=== PATIENT | female | born 1980 | race Caucasian/White ===

== ENCOUNTER → 2017-10-05 | Outpatient (CLI) | payer MEDICARE ==
[~2017-10-05] MED LIST: ALPR.25; CAMRESE LO TAB1 EACH PO; DAPS100 PO; DIPH12.5EL PO; ETHO250 PO; GABA300; HYDACE5325; HYDHCL25 PO; LAMO100; LAMO100 PO; LAMOTRIGINE50 MG PO; MAGOXI400 PO; MONT10T PO; PROM25 PO; Percocet 5-3251 EACH PO; Prednisone10 MG PO; RANI150 PO; TOPI100; TOPI100 PO; Xyzal5 MG
== END | disposition home or self-care (01) ==
LOC: LAB EV 18:08
DX: N39.0 Urinary tract infection, site not specified (principal)
CPT/HCPCS: 87077; 87086; 87186

== ENCOUNTER 2020-02-22 00:20 | Day surgery (SDC) | payer MEDICARE ==
[2020-02-22] MEDS ORDERED: Xolair150 MG SC (09:37)
== END 2020-02-22 09:31 | disposition home or self-care (01) ==
LOC: ATC 00:20
DX: L50.1 Idiopathic urticaria (principal); F32.9 Major depressive disorder, single episode, unspecified; F41.9 Anxiety disorder, unspecified; Z79.899 Other long term (current) drug therapy; Z87.891 Personal history of nicotine dependence
CPT/HCPCS: 96372; J2357

== ENCOUNTER 2020-03-21 01:47 | Day surgery (SDC) | payer MEDICARE ==
[~2020-03-21 01:47] MED LIST changes: +Xolair150 MG SC
== END 2020-03-21 08:58 | disposition home or self-care (01) ==
LOC: ATC 01:47
DX: L50.1 Idiopathic urticaria (principal); F32.9 Major depressive disorder, single episode, unspecified; F41.9 Anxiety disorder, unspecified; G40.909 Epilepsy, unspecified, not intractable, without status epilepticus; Z79.899 Other long term (current) drug therapy; Z87.891 Personal history of nicotine dependence; Z88.5 Allergy status to narcotic agent; Z88.8 Allergy status to other drugs, medicaments and biological substances; Z91.041 Radiographic dye allergy status
CPT/HCPCS: 96372; J2357

== ENCOUNTER 2020-05-19 00:16 | Day surgery (SDC) | payer MEDICARE | END 2020-05-19 16:57 | disposition home or self-care (01) | LOC: ATC 00:16 | DX: L50.1 Idiopathic urticaria (principal) | CPT/HCPCS: 96372; J2357 ==

== ENCOUNTER 2020-06-25 00:29 | Day surgery (SDC) | payer BC, MEDICARE | END 2020-06-25 16:40 | disposition home or self-care (01) | LOC: ATC 00:29 | DX: L50.1 Idiopathic urticaria (principal) | CPT/HCPCS: 96372; J2357 ==

== ENCOUNTER 2020-07-23 09:12 | Day surgery (SDC) | payer BC, MEDICARE | END 2020-07-23 09:54 | disposition home or self-care (01) | LOC: ATC 09:12 | DX: L50.1 Idiopathic urticaria (principal); F32.9 Major depressive disorder, single episode, unspecified; F41.9 Anxiety disorder, unspecified; Z79.899 Other long term (current) drug therapy; Z87.891 Personal history of nicotine dependence; Z88.5 Allergy status to narcotic agent; Z88.8 Allergy status to other drugs, medicaments and biological substances; Z91.041 Radiographic dye allergy status | CPT/HCPCS: 96372; J2357 ==

== ENCOUNTER 2020-08-26 00:22 | Day surgery (SDC) | payer BC, MEDICARE | END 2020-08-26 09:39 | disposition home or self-care (01) | LOC: ATC 00:22 | DX: L50.1 Idiopathic urticaria (principal); F32.9 Major depressive disorder, single episode, unspecified; F41.9 Anxiety disorder, unspecified; Z87.891 Personal history of nicotine dependence; Z79.899 Other long term (current) drug therapy; Z88.5 Allergy status to narcotic agent; Z91.041 Radiographic dye allergy status; Z91.040 Latex allergy status; Z91.048 Other nonmedicinal substance allergy status; Z91.018 Allergy to other foods | CPT/HCPCS: 96372; J2357 ==

== ENCOUNTER 2020-09-23 00:26 | Day surgery (SDC) | payer BC, MEDICARE | END 2020-09-23 13:50 | disposition home or self-care (01) | LOC: ATC 00:26 | DX: L50.1 Idiopathic urticaria (principal); F32.9 Major depressive disorder, single episode, unspecified; F41.9 Anxiety disorder, unspecified; Z88.5 Allergy status to narcotic agent; Z88.8 Allergy status to other drugs, medicaments and biological substances; Z91.041 Radiographic dye allergy status; Z79.899 Other long term (current) drug therapy; Z91.040 Latex allergy status; Z91.048 Other nonmedicinal substance allergy status; Z87.891 Personal history of nicotine dependence; Z91.018 Allergy to other foods | CPT/HCPCS: J2357 ==

== ENCOUNTER 2020-10-21 00:07 | Day surgery (SDC) | payer BC, MEDICARE ==
[2021-04-07] MEDS ORDERED: Lamictal150 MG PO (12:55)
[2021-04-07] MEDS ORDERED: [UNRECOGNIZED DRUG - OTHER] PO (12:56)
[2021-04-07] MEDS ORDERED: VENLAFAXINE HC225 MG PO (12:57)
[2021-04-07] MEDS ORDERED: CENTRUM SILVER1 EAC2 PO (12:57)
[2021-04-07] MEDS ORDERED: PRAMIPEXOLE0.125 M1 PO (12:57)
[2021-04-07] MEDS ORDERED: PRED5 PO (12:58)
[2021-04-07] MEDS ORDERED: Vitamin D2000 UNIT PO (12:58)
[2021-04-07] MEDS ORDERED: ALPR.5 PO (12:59)
[2021-04-07] MEDS ORDERED: CYCL10 PO (12:59)
== END 2020-10-21 14:09 | disposition home or self-care (01) ==
LOC: ATC 00:07
DX: L50.1 Idiopathic urticaria (principal); F32.9 Major depressive disorder, single episode, unspecified; Z87.891 Personal history of nicotine dependence; Z88.8 Allergy status to other drugs, medicaments and biological substances
CPT/HCPCS: 96372; J2357

== ENCOUNTER 2020-11-18 00:44 | Day surgery (SDC) | payer BC, MEDICARE ==
[2021-04-07] MEDS ORDERED: Lamictal150 MG PO (12:55)
[2021-04-07] MEDS ORDERED: [UNRECOGNIZED DRUG - OTHER] PO (12:56)
[2021-04-07] MEDS ORDERED: VENLAFAXINE HC225 MG PO (12:57)
[2021-04-07] MEDS ORDERED: PRAMIPEXOLE0.125 M1 PO (12:57)
[2021-04-07] MEDS ORDERED: CENTRUM SILVER1 EAC2 PO (12:57)
[2021-04-07] MEDS ORDERED: PRED5 PO (12:58)
[2021-04-07] MEDS ORDERED: Vitamin D2000 UNIT PO (12:58)
[2021-04-07] MEDS ORDERED: ALPR.5 PO (12:59)
[2021-04-07] MEDS ORDERED: CYCL10 PO (12:59)
== END 2020-11-18 16:45 | disposition home or self-care (01) ==
LOC: ATC 00:44
DX: L50.1 Idiopathic urticaria (principal); Z87.891 Personal history of nicotine dependence; Z79.899 Other long term (current) drug therapy
CPT/HCPCS: 96372; J2357

== ENCOUNTER 2020-12-16 00:16 | Day surgery (SDC) | payer BC ==
[2021-04-07] MEDS ORDERED: Lamictal150 MG PO (12:55)
[2021-04-07] MEDS ORDERED: [UNRECOGNIZED DRUG - OTHER] PO (12:56)
[2021-04-07] MEDS ORDERED: CENTRUM SILVER1 EAC2 PO (12:57)
[2021-04-07] MEDS ORDERED: VENLAFAXINE HC225 MG PO (12:57)
[2021-04-07] MEDS ORDERED: PRAMIPEXOLE0.125 M1 PO (12:57)
[2021-04-07] MEDS ORDERED: PRED5 PO (12:58)
[2021-04-07] MEDS ORDERED: Vitamin D2000 UNIT PO (12:58)
[2021-04-07] MEDS ORDERED: CYCL10 PO (12:59)
[2021-04-07] MEDS ORDERED: ALPR.5 PO (12:59)
== END 2020-12-16 16:25 | disposition home or self-care (01) ==
LOC: ATC 00:16
DX: L50.1 Idiopathic urticaria (principal); Z88.5 Allergy status to narcotic agent; Z88.8 Allergy status to other drugs, medicaments and biological substances; Z79.899 Other long term (current) drug therapy
CPT/HCPCS: 96372; J2357

== ENCOUNTER → 2021-01-06 | Outpatient (CLI) | payer BC ==
[2021-01-08 16:08] LABS: HPV 16 Negative (Negative); HPV 18 Negative (Negative); HPV OTHER HR TYPES Negative (Negative)
== END ==
LOC: LAB SHORT 17:25
PROVIDERS: Obstetrics & Gynecology
DX: Z12.4 Encounter for screening for malignant neoplasm of cervix (principal); Z88.5 Allergy status to narcotic agent; Z88.8 Allergy status to other drugs, medicaments and biological substances; Z91.040 Latex allergy status; Z91.048 Other nonmedicinal substance allergy status
CPT/HCPCS: 87624; G0123

== ENCOUNTER 2021-01-14 16:00 | Day surgery (SDC) | payer BC | END 2021-01-14 16:45 | disposition home or self-care (01) | LOC: ATC 16:00 | DX: L50.1 Idiopathic urticaria (principal); Z79.899 Other long term (current) drug therapy | CPT/HCPCS: 96372; J2357 ==

== ENCOUNTER 2021-02-25 02:40 | Day surgery (SDC) | payer BC ==
[2021-04-07] MEDS ORDERED: Lamictal150 MG PO (12:55)
[2021-04-07] MEDS ORDERED: [UNRECOGNIZED DRUG - OTHER] PO (12:56)
[2021-04-07] MEDS ORDERED: VENLAFAXINE HC225 MG PO (12:57)
[2021-04-07] MEDS ORDERED: CENTRUM SILVER1 EAC2 PO (12:57)
[2021-04-07] MEDS ORDERED: PRAMIPEXOLE0.125 M1 PO (12:57)
[2021-04-07] MEDS ORDERED: Vitamin D2000 UNIT PO (12:58)
[2021-04-07] MEDS ORDERED: PRED5 PO (12:58)
[2021-04-07] MEDS ORDERED: ALPR.5 PO (12:59)
[2021-04-07] MEDS ORDERED: CYCL10 PO (12:59)
== END 2021-02-25 10:21 | disposition home or self-care (01) ==
LOC: ATC 02:40
DX: L50.1 Idiopathic urticaria (principal)
CPT/HCPCS: 96372; J2357

== ENCOUNTER 2021-03-24 04:31 | Day surgery (SDC) | payer BC ==
[2021-04-07] MEDS ORDERED: Lamictal150 MG PO (12:55)
[2021-04-07] MEDS ORDERED: [UNRECOGNIZED DRUG - OTHER] PO (12:56)
[2021-04-07] MEDS ORDERED: PRAMIPEXOLE0.125 M1 PO (12:57)
[2021-04-07] MEDS ORDERED: VENLAFAXINE HC225 MG PO (12:57)
[2021-04-07] MEDS ORDERED: CENTRUM SILVER1 EAC2 PO (12:57)
[2021-04-07] MEDS ORDERED: PRED5 PO (12:58)
[2021-04-07] MEDS ORDERED: Vitamin D2000 UNIT PO (12:58)
[2021-04-07] MEDS ORDERED: CYCL10 PO (12:59)
[2021-04-07] MEDS ORDERED: ALPR.5 PO (12:59)
== END 2021-03-24 16:36 | disposition home or self-care (01) ==
LOC: ATC 04:31
DX: L50.1 Idiopathic urticaria (principal)
CPT/HCPCS: 96372; J2357

== ENCOUNTER 2021-04-08 07:08 | Day surgery (SDC) | payer BC ==
[~2021-04-08] VITALS: Ht 165.1 cm; Wt 119.2 kg
[~2021-04-08 07:08] MED LIST changes: +ALPR.5 PO; +CENTRUM SILVER1 EAC2 PO; +CYCL10 PO; +Lamictal150 MG PO; +PRAMIPEXOLE0.125 M1 PO; +PRED5 PO; +VENLAFAXINE HC225 MG PO; +Vitamin D2000 UNIT PO; +[UNRECOGNIZED DRUG - OTHER] PO
--- NOTE | 2021-04-08 07:44 | NUR ---
Ambulatory in Day Surgery History, Chart, Medications and Allergies reviewed before start of procedure.Patient confirms NPO status and agrees with scheduled surgery. Lungs clear T/O to Auscultation. Patient States Post-Procedure ride home has been arranged WITH FRIEND
--- NOTE | 2021-04-08 08:26 | NUR ---
04/08/21 0826 Shane Blanchard MONITOR INTACT WITH CONTINUOUS PULSE OXIMETRY AND INTERMITTENT BP. O2 VIA N/C INTACT THROUGHOUT SEDATION/PROCEDURE. History, Chart, Medications and Allergies reviewed before start of procedure. HISTORY,CHART, MEDICATIONS AND ALLERGIES REVIEWED BEFORE START OF PROCEDURE. PATIENT CONFIRMS NPO STATUS AND AGREES WITH SCHEDULED PROCEDURE. 3-LEAD EKG REVIEWED WITH PHYSICIAN PRIOR TO START OF PROCEDURE. MONITOR INTACT WITH CONTINUOUS PULSE OXIMETRY AND INTERMITTENT BP. SUPPLEMENTAL O2 TO BE TITRATED THROUGHOUT PROCEDURE TO MAINTAIN O2 SATURATION ABOVE 90%. PATIENT DETERMINED TO BE ASA APPROPRIATE FOR MODERATE SEDATION PRIOR TO START OF PROCEDURE BY
--- NOTE | 2021-04-08 09:15 | NUR ---
Patient up to Ambulate independently. Gait steady. Discharge instructions reviewed with patient. Patient verbalizes understanding. Copy given to patient to take home. Discharged via wheelchair to private car for ride home.
== END 2021-04-08 23:07 | disposition home or self-care (01) ==
LOC: ORSCMMR 07:08 → ORD 08:00 → ORSCMMR 23:07
PROVIDERS: Internal Medicine Gastroenterology
PROC: 0DB78ZX Excision of Stomach, Pylorus, Via Natural or Artificial Opening Endoscopic, Diagnostic (ICD-10-PCS; principal; 2021-04-08 08:00)
PROC: 0DB98ZX Excision of Duodenum, Via Natural or Artificial Opening Endoscopic, Diagnostic (ICD-10-PCS; principal; 2021-04-08 08:00)
PROC: 0DB58ZX Excision of Esophagus, Via Natural or Artificial Opening Endoscopic, Diagnostic (ICD-10-PCS; principal; 2021-04-08 08:00)
DX: K21.9 Gastro-esophageal reflux disease without esophagitis (principal); K29.80 Duodenitis without bleeding; K29.70 Gastritis, unspecified, without bleeding; E66.01 Morbid (severe) obesity due to excess calories; Z68.41 Body mass index [BMI] 40.0-44.9, adult; Z01.818 Encounter for other preprocedural examination; I10 Essential (primary) hypertension; G40.909 Epilepsy, unspecified, not intractable, without status epilepticus; Z79.899 Other long term (current) drug therapy
CPT/HCPCS: 88305; 88342; A9270; J2250; J3010; J7120

== ENCOUNTER 2021-04-21 03:53 | Day surgery (SDC) | payer BC | END 2021-04-21 16:36 | disposition home or self-care (01) | LOC: ATC 03:53 | DX: L50.1 Idiopathic urticaria (principal) | CPT/HCPCS: 96372; J2357 ==

== ENCOUNTER 2021-04-24 22:52 | Emergency (ER) | payer BC | END 2021-04-24 23:25 | disposition left against medical advice (07) | LOC: ER 22:52 | DX: Z53.21 Procedure and treatment not carried out due to patient leaving prior to being seen by health care provider (principal) ==

== ENCOUNTER 2021-05-19 09:25 | Day surgery (SDC) | payer BC | END 2021-05-19 10:58 | disposition home or self-care (01) | LOC: ATC 09:25 | DX: L50.1 Idiopathic urticaria (principal) | CPT/HCPCS: 96372; J2357 ==

== ENCOUNTER 2021-06-16 16:24 | Day surgery (SDC) | payer BC | END 2021-06-16 22:42 | disposition home or self-care (01) | LOC: ATC 16:24 | DX: L50.1 Idiopathic urticaria (principal) | CPT/HCPCS: 96372; J2357 ==

== ENCOUNTER → 2021-08-24 | Outpatient (CLI) | payer BC | END | disposition home or self-care (01) | LOC: LAB SHORT 11:19 → LAB 11:19 | DX: L82.1 Other seborrheic keratosis (principal) ==

== ENCOUNTER 2021-09-10 00:12 | Day surgery (SDC) | payer BC | END 2021-09-10 10:00 | disposition home or self-care (01) | LOC: ATC 00:12 | DX: L50.1 Idiopathic urticaria (principal) | CPT/HCPCS: 96372; J2357 ==

== ENCOUNTER 2021-09-16 13:00 | Emergency (ER) | payer BC ==
[~2021-09-16] VITALS: Ht 165.1 cm; Wt 115.2 kg
[2021-09-16] MEDS ORDERED: AMOCLA875 PO (15:18)
[2021-09-16 15:35] LABS: Calcium, Ionized (POC) 1.21 mmol/L (1.10-1.46); Chloride (POC) 104 mmol/L (98-108); Creatinine (POC) 0.8 mg/dL (0.6-1.0); Glucose (ISTAT POC) 94 mg/dL (70-99); Hemoglobin (POC) 14.6 g/dL (12.0-16.0); Potassium (POC) 3.7 mmol/L (3.5-5.5); Sodium (POC) 139 mmol/L (135-148); Total CO2 (POC) 26 mmol/L (21-32)
== END 2021-09-16 15:37 | disposition home or self-care (01) ==
LOC: ER 13:00
PROVIDERS: Physician Assistant
DX: J01.90 Acute sinusitis, unspecified (principal); R56.9 Unspecified convulsions; W18.30XA Fall on same level, unspecified, initial encounter; Z91.048 Other nonmedicinal substance allergy status; Z91.040 Latex allergy status; Z88.5 Allergy status to narcotic agent; Z79.899 Other long term (current) drug therapy; Z79.52 Long term (current) use of systemic steroids; G40.909 Epilepsy, unspecified, not intractable, without status epilepticus; Z87.891 Personal history of nicotine dependence
CPT/HCPCS: 70450; 80047; 85014; 99284-25; A9270

== ENCOUNTER 2021-10-29 03:21 | Day surgery (SDC) | payer BC ==
[~2021-10-29 03:21] MED LIST changes: +AMOCLA875 PO
== END 2021-10-29 15:52 | disposition home or self-care (01) ==
LOC: ATC 03:21
DX: L50.1 Idiopathic urticaria (principal)
CPT/HCPCS: 96372; J2357

== ENCOUNTER 2021-12-17 03:27 | Day surgery (SDC) | payer BC | END 2021-12-17 14:10 | disposition home or self-care (01) | LOC: ATC 03:27 | DX: L50.1 Idiopathic urticaria (principal) | CPT/HCPCS: 96372; J2357 ==

== ENCOUNTER 2022-02-16 04:31 | Day surgery (SDC) | payer BC | END 2022-02-16 17:00 | disposition home or self-care (01) | LOC: ATC 04:31 | DX: L50.1 Idiopathic urticaria (principal) | CPT/HCPCS: 96372; J2357 ==

== ENCOUNTER 2022-03-16 04:48 | Day surgery (SDC) | payer BC | END 2022-03-16 16:37 | disposition home or self-care (01) | LOC: ATC 04:48 | DX: L50.1 Idiopathic urticaria (principal) | CPT/HCPCS: J2357 ==

== ENCOUNTER 2022-04-13 02:40 | Day surgery (SDC) | payer BC | END 2022-04-13 16:36 | disposition home or self-care (01) | LOC: ATC 02:40 | DX: L50.1 Idiopathic urticaria (principal) | CPT/HCPCS: 96372; J2357 ==

== ENCOUNTER 2022-05-12 01:36 | Day surgery (SDC) | payer BC | END 2022-05-12 16:24 | disposition home or self-care (01) | LOC: ATC 01:36 | DX: L50.1 Idiopathic urticaria (principal) | CPT/HCPCS: 96372; J2357 ==

== ENCOUNTER 2022-07-07 02:17 | Day surgery (SDC) | payer BC ==
[~2022-07-07 02:17] MED LIST changes: +METO50ER PO; +MIRAPEX0.25 M1 PO
== END 2022-07-07 16:24 | disposition home or self-care (01) ==
LOC: ATC 02:17
DX: L50.1 Idiopathic urticaria (principal); Z86.16 Personal history of COVID-19
CPT/HCPCS: J2357

== ENCOUNTER 2022-09-23 03:59 | Day surgery (SDC) | payer BC | END 2022-09-23 09:41 | disposition home or self-care (01) | LOC: ATC 03:59 | DX: L50.1 Idiopathic urticaria (principal) | CPT/HCPCS: 96372; J2357 ==

== ENCOUNTER 2022-11-18 01:16 | Day surgery (SDC) | payer BC | END 2022-11-18 16:35 | disposition home or self-care (01) | LOC: ATC 01:16 | DX: L50.1 Idiopathic urticaria (principal) | CPT/HCPCS: 96372; J2357 ==

== ENCOUNTER 2023-01-12 02:40 | Day surgery (SDC) | payer BC ==
[2023-01-12 15:00] VITALS: BP 122/90
== END 2023-01-12 15:25 | disposition home or self-care (01) ==
LOC: ATC 02:40
DX: L50.1 Idiopathic urticaria (principal)
CPT/HCPCS: 96372; J2357

== ENCOUNTER 2023-02-09 00:16 | Day surgery (SDC) | payer BC | END 2023-02-09 15:17 | disposition home or self-care (01) | LOC: ATC 00:16 | DX: L50.1 Idiopathic urticaria (principal) | CPT/HCPCS: J2357 ==

== ENCOUNTER 2023-03-09 02:49 | Day surgery (SDC) | payer BC ==
[2023-03-09 13:47] VITALS: BP 132/85
== END 2023-03-09 13:47 | disposition home or self-care (01) ==
LOC: ATC 02:49
DX: L50.1 Idiopathic urticaria (principal); Z88.6 Allergy status to analgesic agent; Z91.041 Radiographic dye allergy status
CPT/HCPCS: J2357

== ENCOUNTER 2023-05-09 00:15 | Day surgery (SDC) | payer BC ==
[2023-05-09 14:06] VITALS: BP 140/82
== END 2023-05-09 14:10 | disposition home or self-care (01) ==
LOC: ATC 00:15
DX: L50.8 Other urticaria (principal); Z98.84 Bariatric surgery status
CPT/HCPCS: 96372; J2357

== ENCOUNTER → 2023-09-07 | Outpatient (CLI) | payer BC | END | disposition home or self-care (01) | LOC: LAB 12:10 → LAB SHORT 12:10 | DX: R07.9 Chest pain, unspecified (principal) | CPT/HCPCS: 84484 ==

== ENCOUNTER → 2024-11-22 | Outpatient (CLI) | payer BC | LOC: LAB SHORT 15:17 → LAB 15:17 | DX: N39.0 Urinary tract infection, site not specified (principal) | CPT/HCPCS: 87077; 87086; 87186 ==

== ENCOUNTER 2025-06-02 19:39 | Emergency (ER) | payer BC ==
[~2025-06-02] VITALS: Ht 165.1 cm; Wt 101.2 kg
[2025-06-02] MEDS ORDERED: HYDR1TAB94 PO (21:56)
[2025-06-02] MEDS ORDERED: RX Prepack 6 Tabs Oxycodone 5mg UD ONE (22:00)
[2025-06-02 22:13] VITALS: BP 150/86
== END 2025-06-02 22:15 | disposition home or self-care (01) ==
LOC: ER 19:39
DX: S92.351A Displaced fracture of fifth metatarsal bone, right foot, initial encounter for closed fracture (principal); X58.XXXA Exposure to other specified factors, initial encounter; Z87.891 Personal history of nicotine dependence; Z79.52 Long term (current) use of systemic steroids; Z79.899 Other long term (current) drug therapy; Z91.040 Latex allergy status; Z91.041 Radiographic dye allergy status; Z88.5 Allergy status to narcotic agent; Z91.048 Other nonmedicinal substance allergy status
CPT/HCPCS: 29515; 73630; 99283-25; A9270